=== PATIENT | female | born 1970 | race Caucasian/White ===

== ENCOUNTER 2016-07-31 12:49 | Outpatient (CLI) ==
[2016-07-31 13:47] LABS: CREATININE 0.87 mg/dL (0.60-1.30)
--- NOTE | 2016-07-31 14:53 | MRI ---
EXAM: MRI lumbar spine without and with IV contrast. DATE: 07/31/2016. HISTORY: Severe low back pain with bowel movements. TECHNIQUE: Sagittal and axial T1W, T2W, and T1W postcontrast sequences of the lumbar spine along wi th sagittal IR and coronal T2W sequences were obtained using 0.2 Aminah magnet. Contrast: Omniscan - 14 ml IV. COMPARISON: CT abdomen/pelvis 15 October 2015. FINDINGS: There are five [id number] lumbar vertebra. Alignment of the lumbar spine is normal. No acute lumbar fracture, subluxation, osseous malignancy, or pars interarticularis defect is iden tified. Lumbar vertebra are normal in height. Bone marrow signal is normal. Small anterior osteop hytes, mild Modic type 2 degenerate endplate changes and moderate disc space narrowing are present a t T12-L1. Minor disc space narrowing is detected at L3-4 and L4-5. No sacral fracture or stress leila ction is evident. Mild right SI joint arthritis is suspected inferiorly. Conus medullaris terminat es at L1. Visible spinal cord is normal. No abnormal contrast enhancement identified within the sp inal cord, nerve roots, vertebral bodies, or intervertebral discs. No retroperitoneal lymphadenopathy, paraspinal mass, or aortic aneurysm is detected. Paraspinal mus culature is symmetric bilaterally. Visible portions of the liver, spleen, adrenal glands and kidney s are normal. No bowel obstruction or neoplasm is evident. Segmental analysis: T12-L1: Small posterior disc bulge does not cause cord compression, central stenosis or foraminal s tenosis. L1-2: Normal. L2-3: Normal. L3-4: Small right foraminal to far lateral disc bulge/protrusion (3.4 mm AP x 18 mm transverse) and minimal left foraminal to far lateral disc bulge cause mild right and minimal left foraminal narrow ing. Right L3 nerve root contacts the disc bulge / protrusion in the foramen. L4-5: Minimal posterior to left foraminal disc bulge, mild facet arthropathy, and mild ligamentum f lavum hypertrophy cause mild central canal stenosis and mild bilateral foraminal stenosis. L5-S1: Normal. IMPRESSIONS: 1. L-spine minor spondylosis, facet arthropathy, and DDD. 2. No lumbar spine central canal stenosis. 3. L3-4 and L4-5 foraminal stenoses (minimal/mild). Right L3 nerve root contacts disc bulge/protru eleazar near the foramen, and could be a source for pain/radiculopathy.
== END 2016-07-31 12:50 | disposition home or self-care (01) ==
LOC: RAD 12:49
PROVIDERS: ATTEND Nurse Practitioner Family
DX: R19.8 Other specified symptoms and signs involving the digestive system and abdomen (principal); R19.7 Diarrhea, unspecified; M54.5 Low back pain; Y63.3 Inadvertent exposure of patient to radiation during medical care
CPT/HCPCS: 36415; 82565

== ENCOUNTER 2016-11-03 08:58 | Outpatient (CLI) ==
--- NOTE | 2016-11-03 16:10 | MRI ---
EXAM: MRI cervical spine without IV contrast. DATE: 03 November 2016. HISTORY: Cervicalgia. Neck pain. TECHNIQUE: Sagittal and axial T1W and T2W sequences of the cervical spine along with sagittal IR an d coronal T2W sequences were obtained using 1.5 Aminah magnet. No IV contrast. COMPARISON: MRI brain 10 January 2015. FINDINGS: Mild rightward curvature of the mid cervical spine is observed. There is a 1.5 mm anteri or subluxation of C6 relative to C5. No other subluxation, acute fracture, osseous malignancy, or j umped facet is evident. Small anterior osteophytes are noted at C2-4, C4-5, and C5-6. All mild dis c space narrowing is noted at C5-6. T1W bone marrow signal is brighter than the intervertebral disc s and paraspinal muscles. Cervical and upper thoracic spinal cord reveals no syrinx, cord edema, my elomalacia, or neoplasm. Visible brainstem and brain reveals no infarct, hemorrhage, or neoplasm. Cerebellar tonsils extend near the inferior margin of the foramen magnum. There is no Chiari one malformation. A few inferio r right mastoid air cells have T2W bright signal suggesting minor effusion. No thyroid, submandibul ar, or parotid gland neoplasm is identified. Trachea, larynx, and epiglottis are normal. Linear T2 W bright focus with bilateral T2W bright, T1W intermediate signal 7.5 x 15 mm region lateral to the left lobe thyroid gland may be prominent lymphatic duct dilatation and prominent branches. Lymphoce le is less likely. No apical lung mass, pneumonia, or pleural effusion is demonstrated. Segmental analysis: C2-3: Normal. C3-4: Small posterior disc bulge (1.8 mm AP) does not contact the cord. Canal is 11 mm AP. Minor left foraminal narrowing is due to uncinate hypertrophy and minor left facet arthropathy. C4-5: Minimal posterior disc bulge (1 mm AP) does not contact the cord. Canal is 10.6 mm AP. Each foramen is patent. C5-6: Minimal anterior subluxation of C6, broad posterior disc/osteophyte complex (1.6 mm AP) do no t cause cord compression. Canal is 9 mm AP. Minor left foraminal narrowing is due to uncinate hype rtrophy and minor left facet disease. C6-7: Normal. C7-T1: Normal. T1-2: Normal, except for left foraminal T2W bright, 4.8 x 5 mm lesion - likely benign perineural cy st. IMPRESSIONS: 1. C-spine mild spondylosis, minor facet arthropathy, and multilevel DDD. 2. C-spine mild central canal stenosis at C5-6. 3. Minor C3-4 and C5-6 left foraminal stenoses. 4. T1-2 left foraminal lesion - likely perineural cyst. 5. Left neck possible mild lymphatic duct dilatation. 6. Minor right mastoid air cell disease.
== END 2016-11-03 08:59 | disposition home or self-care (01) ==
LOC: RAD 08:58
PROVIDERS: ATTEND Nurse Practitioner Family
DX: M54.2 Cervicalgia (principal)

== ENCOUNTER 2016-12-09 11:00 | Outpatient (RCR) ==
--- NOTE | 2016-12-03 14:57 | RS.OPPTEV2 ---
Date of Note: 12/03/16 Visit #: 1 Date of Evaluation: 12/03/16 Payer Source: Medicaid Treatment Diagnosis: Low back pain History of Condition/Mechanism of Injury:: Patient reports back pain since approximately July of this year. States she does not know of any injury or exact onset. Prior Level of Function.....Patient was independent with: ADL's, Self Care, Work /Vocation, Caregiving, Ambulation/Mobility, Community Integration/Access Functional Limitations: ADL's, Reaching, Pushing, Pulling, Lifting, Carrying, Sitting, Standing, Bending, Squatting, Ambulation, Community Access/Integration Current Subjective/complaints:: Patient reports pain in the center of the low back. States pain is worse with standing and walking. States the more active she is, the more pain she has. States she has become less active and feels like she has become lazy. States she can tolerate sitting for about an hour, but then has to change positions. She reports have bowel and bladder problems. Reports having times of difficulty going to the bathroom and other times that she cannot stop. States she is able to sleep well. Admits that she does sleep on her stomach, but tries to sleep on her back. Reports she has avoided housework because of increased pain with activity. Medical History Medical History: Arthritis (neck and low back) Surgical History: Hysterectomy (2015), (1990) Smoking Status: Former smoker Hx Home Medications: Buspar, Lexapro, Neurontin Patient's Goals: Her goal is to get relief of back pain and to be active again. Pain Assessment - Pain Description Pain Location: low back Current Pain Intensity: 3/10 Worst Pain Intensity: 9/10 Functional Outcome Measure Oswestry LBP: 44 - G Codes & Severity Modifier G Codes & Modifier: NA Source of G Code score: Na Observation - Observation Posture: Forward Head, Rounded Shoulders, Decreased Lumbar Lordosis Gait - Gait Pattern General Gait Pattern Observation: No Deviations/Normal - ROM Lumbar Flexion: Hand reach to Mid-Shins Sidebending to Left: Reach to Mid-thigh Sidebending to Right: Reach to Mid-thigh Lumbar Spine ROM Limitations: Soft Tissue Tightness Comments: With lumbar flexion, patient demonstrates decreased mobility at the lumbar spine and most flexion at the hips. Extension is WFL's with some discomfort. LE AROM is WFL's. - Strength Trunk Rotation: 4 Good Comments: Bilateral hip strength is 4/5 of ER/IR and flexion, all else 4+ to 5/ 5 of the LE's. - Special Tests YE Test: Positive Left SLR Test: Negative Left, Negative Right Seated Dural Stretch Test: Negative Left, Negative Right SI Joint Compression: Positive Palpation Comments:: Patient demonstrates minimal to moderate muscle guarding along the lumbar paraspinals bilaterally. Reports slight discomfort with central pressures along the lumbar spinous processes. Reports minimal tenderness at the left lumbosacral region. Sensation - Sensation Comments: Currently sensation is intact throughout the LE's. States she does have times of numbness or tingling along the left lateral lower leg. Additional Comments: Additional Comments: Right SLR to 50-55 degrees, Left SLR to 60 degrees. Interventions - Exercise/Activities/Manual Therapy Exercises/Activities: Patient instructed in stretching exercises for home of SKTC, HS stretch and piriformis stretch Manual Therapy: NA HOME EXERCISE PROGRAM: SKTC, HS stretch and piriformis stretch - Charges Total Direct Minutes: 55 mins Total Treatment Time: 55 mins Procedures billed for this date of service:: EVAL Low X4 Assessment Assessment: Patient presents to therapy with a diagnosis of low back pain. She reports pain for approximately four months. Reports increased pain with activity. She demonstrates decreased flexiblity and mobility in the lumbar spine and an imbalance of HS flexibility in the LE's. She displays some symptoms of SI joint dysfunction. She will benefit from treatment to address flexibility and progress to spinal stability exercises and education of back safety. Patient Education: Education of diagnosis, Body/Joint mechanics, Home Exercise Program, Home Safety, Activity Modification, Education of Plan of Care Rehab Potential: Good Short Term Goals Goal #1: Patient independent in basic HEP. Goal to be met by: 12/17/16 Goal #2: SLR bilaterally to 60 degrees. Goal to be met by: 12/17/16 Goal #3: Bilateral hip strength 4+/5 throughout. Goal to be met by: 12/17/16 Topography Technician Goals Goal #1: Pt knows HEP and to continue ex's to maintain functional level at D/C. Goal to be met by: 01/12/17 Goal #2: Score on Oswestry LBP scale improved to 20. Goal to be met by: 01/12/17 Goal #3: Pt to tolerate prolonged standing/walking with minimal back pain. Goal to be met by: 01/12/17 Goal #4: Pt to perform all housework and ADL's with minimal back pain. Goal to be met by: 01/12/17 Plan - Treatment to be Provided Procedures: Therapeutic Exercises, Therapeutic Activity, Manual Therapy, Patient Education Modalities: Electrical Stimulation, Ultrasound/Phonophoresis, Cryotherapy, Hot Packs - Treatment Plan Frequency: 3 X week Duration: 4 weeks ORDER # VISITS AND/OR THROUGH DATE: 01/12/17 - Treatment Code (1) Low back pain Qualifiers: Chronicity: acute Back pain laterality: unspecified Sciatica presence: unspecified whether sciatica present Qualified Description: Acute low back pain, unspecified back pain laterality, with sciatica presence unspecified Qualifier Code(s): (M54.5) Low back pain
--- NOTE | 2016-12-09 12:04 | RS.OPPTDN ---
Subjective Date of Note: 12/09/16 Visit #: 2 Date of Evaluation: 12/03/16 Payer Source: Medicaid Treatment Diagnosis: Low back pain Current Subjective/complaints:: Reports her back," is killing her today".She has no pain in the LE's. Pain Assessment - Pain Description Pain Location: low back Pain Description: Throbbing, Aching Current Pain Intensity: 5/10 - Treatment Modality: Ultrasound Parameters/Method Applied: 10 mins. to lumbar @ 1.5 w/cm2,continuous mode. - Heat/Cryotherapy Treatment: Hot Pack (20 mins. to lumbar prior to US and exercises) Interventions - Exercise/Activities/Manual Therapy Exercises/Activities: 20 mins. stretching exercises for home of pelvic tilts, abdominal crunches in short ROM, SKTC,DKTC HS stretch. Total minutes of Exercise: 20 Manual Therapy: NA HOME EXERCISE PROGRAM: SKTC, HS stretch and piriformis stretch - Charges Total Direct Minutes: 30 Total Treatment Time: 50 Procedures billed for this date of service:: hp,US,ex 1 Assessment: Patient has good hams. extensibility ,good return demo of each exercise today.She reportsminimal stretch dsicomfort,but no reproduction of sharp pain. Patient Education: Education of diagnosis, Body/Joint mechanics, Home Exercise Program, Home Safety, Activity Modification, Education of Plan of Care Patient demonstrates compliance with HEP?: Yes Short Term Goals Goal #1: Patient independent in basic HEP. Goal to be met by: 12/17/16 Progress towards Goal:: Progressing Goal #2: SLR bilaterally to 60 degrees. Goal to be met by: 12/17/16 Goal #3: Bilateral hip strength 4+/5 throughout. Goal to be met by: 12/17/16 Detention Goals Goal #1: Pt knows HEP and to continue ex's to maintain functional level at D/C. Goal to be met by: 01/12/17 Progress towards goal: Progressing Goal #2: Score on Oswestry LBP scale improved to 20. Goal to be met by: 01/12/17 Goal #3: Pt to tolerate prolonged standing/walking with minimal back pain. Goal to be met by: 01/12/17 Goal #4: Pt to perform all housework and ADL's with minimal back pain. Goal to be met by: 01/12/17 Plan PLAN OF CARE EXPIRES ON:: 01/12/17 ORDER # VISITS AND/OR THROUGH DATE: 01/12/17 PLAN: Continue Plan of Care
== END 2016-12-10 ==
PROVIDERS: ATTEND Anesthesiology Pain Medicine
DX: M47.817 Spondylosis without myelopathy or radiculopathy, lumbosacral region (principal); M51.37 Other intervertebral disc degeneration, lumbosacral region; M54.5 Low back pain

== ENCOUNTER 2016-12-23 11:00 | Outpatient (RCR) ==
--- NOTE | 2016-12-11 12:09 | RS.OPPTDN ---
Subjective Date of Note: 12/11/16 Visit #: 3 Date of Evaluation: 12/03/16 Payer Source: Medicaid Treatment Diagnosis: Low back pain Current Subjective/complaints:: Patient reports relief after last PT session. Pain Assessment - Pain Description Pain Location: low back Pain Description: Dull, Aching Current Pain Intensity: 3/10 - Treatment Modality: Ultrasound Parameters/Method Applied: 10 mins. @ 1.5 w/cm2 ,continuous mode to lumbar region. Patient Position: Right Sidelying - Heat/Cryotherapy Treatment: Hot Pack (20 mins. prior to US and exercise) Interventions - Exercise/Activities/Manual Therapy Exercises/Activities: 20 mins. stretching exercises for home of pelvic tilts, abdominal crunches in short ROM, SKTC,DKTC HS stretches,LTR,piriformis stretches. Total minutes of Exercise: 20 Manual Therapy: NA HOME EXERCISE PROGRAM: SKTC, HS stretch and piriformis stretch - Charges Total Direct Minutes: 30 Total Treatment Time: 50 Procedures billed for this date of service:: hp,US,ex Assessment: Patient tolerates exercises very well today,reports less back pain. She is very attentive to recommendations of the therapy staff. Patient Education: Education of diagnosis, Body/Joint mechanics, Home Exercise Program, Home Safety, Activity Modification, Education of Plan of Care Patient demonstrates compliance with HEP?: Yes Short Term Goals Goal #1: Patient independent in basic HEP. Goal to be met by: 12/17/16 Progress towards Goal:: Progressing Goal #2: SLR bilaterally to 60 degrees. Goal to be met by: 12/17/16 Progress towards Goal:: Progressing Goal #3: Bilateral hip strength 4+/5 throughout. Goal to be met by: 12/17/16 Mcfp Goals Goal #1: Pt knows HEP and to continue ex's to maintain functional level at D/C. Goal to be met by: 01/12/17 Progress towards goal: Progressing Goal #2: Score on Oswestry LBP scale improved to 20. Goal to be met by: 01/12/17 Goal #3: Pt to tolerate prolonged standing/walking with minimal back pain. Goal to be met by: 01/12/17 Goal #4: Pt to perform all housework and ADL's with minimal back pain. Goal to be met by: 01/12/17 Plan PLAN OF CARE EXPIRES ON:: 01/12/17 ORDER # VISITS AND/OR THROUGH DATE: 01/12/17 PLAN: Continue Plan of Care
--- NOTE | 2016-12-16 11:58 | RS.OPPTDN ---
Subjective Date of Note: 12/16/16 Visit #: 4 Date of Evaluation: 12/03/16 Payer Source: Medicaid Treatment Diagnosis: Low back pain Current Subjective/complaints:: Patient reports the back feels better today. Pain Assessment - Pain Description Pain Location: low back Pain Description: Dull, Aching Current Pain Intensity: 0 at rest Other Comments regarding Pain:: Pain generally as the day progresses,dependent upon the amount of daily activity. - Heat/Cryotherapy Treatment: Hot Pack (20 mins. prior to exercises) Interventions - Exercise/Activities/Manual Therapy Exercises/Activities: 25 mins. stretching exercises for home of pelvic tilts, aSKTC,DKTC ,HS stretches,LTR,piriformis stretches.Added alternating hip flexion in hooklying with 2.5 # ,09/01.4-pt. quads,2/10 reps. Total minutes of Exercise: 25 Manual Therapy: NA Total minutes of Manual Therapy: 0 HOME EXERCISE PROGRAM: SKTC, HS stretch and piriformis stretch - Charges Total Direct Minutes: 25 Total Treatment Time: 45 Procedures billed for this date of service:: hp,ex 2 Assessment: Tolerates resistive exercises with report of fatigue only,no increase in back pain.She has good return demo of HEP. Patient Education: Education of diagnosis, Body/Joint mechanics, Home Exercise Program, Home Safety, Activity Modification, Education of Plan of Care Patient demonstrates compliance with HEP?: Yes Short Term Goals Goal #1: Patient independent in basic HEP. Goal to be met by: 12/17/16 Progress towards Goal:: Progressing Goal #2: SLR bilaterally to 60 degrees. Goal to be met by: 12/17/16 Progress towards Goal:: Progressing Goal #3: Bilateral hip strength 4+/5 throughout. Goal to be met by: 12/17/16 Progress towards Goal:: Progressing Penitentiary Goals Goal #1: Pt knows HEP and to continue ex's to maintain functional level at D/C. Goal to be met by: 01/12/17 Progress towards goal: Progressing Goal #2: Score on Oswestry LBP scale improved to 20. Goal to be met by: 01/12/17 Goal #3: Pt to tolerate prolonged standing/walking with minimal back pain. Goal to be met by: 01/12/17 Progress towards goal: Progressing Goal #4: Pt to perform all housework and ADL's with minimal back pain. Goal to be met by: 01/12/17 Progress towards goal: Progressing Plan PLAN OF CARE EXPIRES ON:: 01/12/17 ORDER # VISITS AND/OR THROUGH DATE: 01/12/17 PLAN: Continue Plan of Care
--- NOTE | 2016-12-18 11:41 | RS.OPPTDN ---
Subjective Date of Note: 12/18/16 Visit #: 5 Date of Evaluation: 12/03/16 Payer Source: Medicaid Treatment Diagnosis: Low back pain Current Subjective/complaints:: Patient reports not feeling well,having frequent bowel movements today,and increased back pain ,described as moderate. Pain Assessment - Pain Description Pain Location: low back Pain Description: Dull, Aching Current Pain Intensity: 3-4 - Heat/Cryotherapy Treatment: Hot Pack (20 mins. to lumbar in supine.) Interventions - Exercise/Activities/Manual Therapy Exercises/Activities: NA Total minutes of Exercise: 0 Manual Therapy: NA Total minutes of Manual Therapy: 0 HOME EXERCISE PROGRAM: SKTC, HS stretch and piriformis stretch - Charges Total Direct Minutes: 0 Total Treatment Time: 20 Procedures billed for this date of service:: no charges today Assessment: Abbreviated session only ,unable to do exercises as patient is having frequent bowel movements today. Patient Education: Education of Plan of Care Patient demonstrates compliance with HEP?: Yes Short Term Goals Goal #1: Patient independent in basic HEP. Goal to be met by: 12/17/16 Progress towards Goal:: Progressing Goal #2: SLR bilaterally to 60 degrees. Goal to be met by: 12/17/16 Progress towards Goal:: Progressing Goal #3: Bilateral hip strength 4+/5 throughout. Goal to be met by: 12/17/16 Progress towards Goal:: Progressing Automotive Diagnostic Technician Goals Goal #1: Pt knows HEP and to continue ex's to maintain functional level at D/C. Goal to be met by: 01/12/17 Progress towards goal: Progressing Goal #2: Score on Oswestry LBP scale improved to 20. Goal to be met by: 01/12/17 Goal #3: Pt to tolerate prolonged standing/walking with minimal back pain. Goal to be met by: 01/12/17 Progress towards goal: Progressing Goal #4: Pt to perform all housework and ADL's with minimal back pain. Goal to be met by: 01/12/17 Progress towards goal: Progressing Plan PLAN OF CARE EXPIRES ON:: 01/12/17 ORDER # VISITS AND/OR THROUGH DATE: 01/12/17 PLAN: Continue Plan of Care
--- NOTE | 2016-12-25 11:50 | RS.OPPTDN ---
Subjective Date of Note: 12/16/16 Date of Evaluation: 12/03/16 Payer Source: Medicaid Treatment Diagnosis: Low back pain Current Subjective/complaints:: Patient reports feeling better today ,no back pain at this time,is doing her exercises moreregularly,also riding exercise bike. Pain Assessment - Pain Description Pain Location: low back Pain Description: Dull, Aching Current Pain Intensity: 0 at rest - Heat/Cryotherapy Treatment: Hot Pack (20 mins. prior to exercises) Interventions - Exercise/Activities/Manual Therapy Exercises/Activities: 25 mins. Total minutes of Exercise: 25 Manual Therapy: NA Total minutes of Manual Therapy: 0 HOME EXERCISE PROGRAM: SKTC, HS stretch and piriformis stretch - Charges Total Direct Minutes: 25 Total Treatment Time: 45 Procedures billed for this date of service:: hp,ex 2 Short Term Goals Goal #1: Patient independent in basic HEP. Goal to be met by: 12/17/16 Progress towards Goal:: Progressing Goal #2: SLR bilaterally to 60 degrees. Goal to be met by: 12/17/16 Progress towards Goal:: Progressing Goal #3: Bilateral hip strength 4+/5 throughout. Goal to be met by: 12/17/16 Progress towards Goal:: Progressing Sales Contracts Analyst Goals Goal #1: Pt knows HEP and to continue ex's to maintain functional level at D/C. Goal to be met by: 01/12/17 Progress towards goal: Progressing Goal #2: Score on Oswestry LBP scale improved to 20. Goal to be met by: 01/12/17 Goal #3: Pt to tolerate prolonged standing/walking with minimal back pain. Goal to be met by: 01/12/17 Progress towards goal: Progressing Goal #4: Pt to perform all housework and ADL's with minimal back pain. Goal to be met by: 01/12/17 Progress towards goal: Progressing Plan PLAN OF CARE EXPIRES ON:: 01/12/17 ORDER # VISITS AND/OR THROUGH DATE: 01/12/17 PLAN: Progress Exercises
--- NOTE | 2016-12-25 11:52 | RS.CXNS ---
Date of scheduled appointment: 12/25/16 Type: Cancel Reason for Cancel/NS: sick today
--- NOTE | 2017-01-01 11:51 | RS.QUICKDC ---
Discharge from PT Date of Discharge: 01/01/17 Number of Visits: 6 Reason for Discharge: Patient called ,pleased with her progress,feels she can continue exercises on her own.Requests D/C from therapy.
== END 2017-01-09 ==
PROVIDERS: ATTEND Anesthesiology Pain Medicine
DX: M47.817 Spondylosis without myelopathy or radiculopathy, lumbosacral region (principal); M51.37 Other intervertebral disc degeneration, lumbosacral region; M54.5 Low back pain

== ENCOUNTER 2017-02-24 18:44 | Outpatient (CLI) ==
[2017-02-24 18:47] LABS: FLU INTERNAL QC INTERNAL QC VALID; RAPID FLU A NEGATIVE (NEGATIVE); RAPID FLU B NEGATIVE (NEGATIVE)
== END 2017-02-24 18:45 | disposition home or self-care (01) ==
LOC: LAB 18:44
PROVIDERS: ATTEND Nurse Practitioner Family
DX: R05 Cough (principal); J02.9 Acute pharyngitis, unspecified; R52 Pain, unspecified; R68.83 Chills (without fever)
CPT/HCPCS: 87651; 87804; 87880

== ENCOUNTER 2017-07-02 12:33 | Outpatient (CLI) ==
[2017-07-02 13:06] LABS: ALANINE AMINOTRANSFERASE 20 U/L (12-78); ALBUMIN 3.4 g/dL (3.4-5.0); ALBUMIN/GLOBULIN RATIO 1.06; ALKALINE PHOSPHATASE 78 U/L (42-98); ANION GAP 13.1; ASPARTATE AMINO TRANSFERASE 18 U/L (15-37); BILIRUBIN,TOTAL < 0.3 mg/dL (0.00-1.20); BLOOD UREA NITROGEN 9 mg/dL (7-18); BUN/CREATININE RATIO 10.97; CALCIUM 9.2 mg/dL (8.2-10.2); CARBON DIOXIDE 23 mmol/L (21-32); CHLORIDE 109 mmol/L (98-107); CHOL/HDL RATIO 6.3 (4.5-5.5); CHOLESTEROL 209 mg/dL (0-200); CREATININE 0.82 mg/dL (0.60-1.30); GLUCOSE 86 mg/dL (70-110); HDL CHOLESTEROL 33 mg/dL (35-80); POTASSIUM 4.1 mmol/L (3.5-5.10); SODIUM 141 mmol/L (136-145); TOTAL PROTEIN 6.6 g/dL (6.4-8.2); TRIGLYCERIDES 220 mg/dL (30-150); VLDL CHOLESTEROL 44 mg/dL (2-30)
== END 2017-07-02 12:34 | disposition home or self-care (01) ==
LOC: LAB 12:33
PROVIDERS: ATTEND Nurse Practitioner Family
DX: E78.1 Pure hyperglyceridemia (principal)
CPT/HCPCS: 36415; 80053; 80061

== ENCOUNTER 2017-09-18 09:30 | Outpatient (CLI) | END 2017-09-18 09:31 | disposition home or self-care (01) | LOC: RAD 09:30 → RHC-LAB 09:31 | PROVIDERS: ATTEND Nurse Practitioner Family | DX: E78.5 Hyperlipidemia, unspecified (principal) | CPT/HCPCS: 36415; 80053; 80061 ==

== ENCOUNTER 2017-09-27 10:46 | Emergency (ER) ==
[2017-09-27 10:52] VITALS: BP 134/90; TEMP 99; BMI 31.1
[2017-09-27] MEDS ORDERED: SOLU-MEDROL 125 MG IM STA (11:01)
--- NOTE | 2017-09-27 11:05 | ED.PDOC ---
General ED Provider: Dr. CARY MENDOZA Chief Complaint: Cough Stated Complaint: Patient is a 46 year old female who states that starting 4 days ago with cough and congestion that has worsened since then. Patient also complains of body aches and a non- productive cough and sinus headache. Time Seen by Physician: 11:03 Mode of Arrival: Walk-In Information Source: Patient Primary Care Provider: [facility] Nursing and Triage Documentation Reviewed and Agree: Yes Reviewed sepsis parameters & appropriate labs ordered?: No System Inflammatory Response Syndrome: Not Applicable Sepsis Protocol: For patient's 13 years and over: Temp is 96.8 and below OR 101 and greater Pulse >90 BPM Resp >20/minute Acutely Altered Mental Status Are patient's symptoms suggestive of a new infection, such as: -Pneumonia -Skin, Soft Tissue -Endocarditis -UTI -Bone, Joint Infection -Implantable Device -Acute Abdominal Infection -Wound Infection -Meningitis -Blood Stream Catheter Infection -Unknown System Inflammatory Response Syndrome: Not Applicable Review of Systems - Review Of Systems Constitutional: Reports: Malaise, Other (body aches ) Eyes: Reports: No symptoms Ears, Nose, Mouth, Throat: Reports: No symptoms Respiratory: Reports: Cough Cardiac: Reports: No symptoms GI: Reports: Nausea, Poor appetite : Reports: No symptoms Musculoskeletal: Reports: No symptoms Skin: Reports: No symptoms Neurological: Reports: Anxiety, Headache Endocrine: Reports: No symptoms Hematologic/Lymphatic: Reports: No symptoms All Other Systems: Reviewed and Negative Past Medical History - Past Medical History Previously Healthy: Yes Endocrine: Reports: Dyslipidemia Cardiovascular: Reports: Hypertension Respiratory: Reports: None Hematological: Reports: None Gastrointestinal: Reports: None Genitourinary: Reports: None Neuro/Psych: Reports: Migraine, Anxiety, Depression, Bipolar Disorder Musculoskeletal: Reports: Arthritis Cancer: Reports: None Last Menstrual Period: HYSTERECTOMY - Surgical History General Surgical History: Reports: Hysterectomy, - Family History Family History: Reports: Unknown - Social History Smoking Status: Never smoker Hx Substance Use: Yes (MARIJUANA) Alcohol Screening: Occasionally - Immunizations Tetanus Shot up to Date: Yes Physical Exam - Physical Exam Appearance: Ill-appearing, Obese Ill-appearing: Mild Pain Distress: Mild Eyes: JESSY, EOMI, Conjunctiva clear ENT: Ears normal, Nose normal, Oropharynx normal (frontal sinus tenderness) Neck: Supple Respiratory: Airway patent, Breath sounds clear, Breath sounds equal, Respirations nonlabored Cardiovascular: RRR, Pulses normal, No rub, No murmur GI/: Soft, Nontender, No masses, Bowel sounds normal, No Organomegaly Musculoskeletal: Normal strength, ROM intact, No edema, No calf tenderness Skin: Warm, Dry, Normal color Neurological: Sensation intact, Motor intact, Reflexes intact, Cranial nerves intact, Alert, Oriented Psychiatric: Affect appropriate Critical Care Note - Critical Care Note Total Time (mins): 0 Course - Course Orders, Labs, Meds: Orders Category Date Time Status Methylprednisolone Sod Succ/Pf [Solu-Medrol 125 mg] MEDS 09/27/17 11:01 Stat 125 mg IM ONCE STA Medications Discontinued Medications Generic Name Dose Route Start Last Admin Trade Name Freq PRN Reason Stop Dose Admin Methylprednisolone Sodium Succinate 125 mg 09/27/17 11:01 Solu-Medrol 125 Mg IM 09/27/17 11:02 ONCE STA Vital Signs: Temp Pulse Resp BP Pulse Ox 09/27/17 10:48 99.0 F 84 20 134/90 98 Departure - Departure Time of Disposition: 11:03 Disposition: HOME SELF-CARE Discharge Problem: Bronchitis Acute sinusitis Qualifiers: Sinusitis location: frontal Recurrence: non-recurrent Qualified Code(s): J01.10 - Acute frontal sinusitis, unspecified Instructions: Sinusitis (ED), Acute Bronchitis (ED) Condition: Stable Pt referred to PMD for follow-up: Yes IPMP verified?: No Additional Instructions: Push fluids Take medications as prescribed. Follow up with PCP 3 days Prescriptions: Azithromycin [Zithromax] 250 mg PO DIRECTED #6 tablet Methylprednisolone [Medrol Dosepak] 4 mg PO DIRECTED #1 pkg Ondansetron HCl [Zofran Tab] 4 mg PO Q8H PRN #14 tablet PRN Reason: Nausea / Vomiting Allergies/Adverse Reactions: Allergies No Known Allergies Allergy (Unverified 02/24/17 13:42) Home Medications: Ambulatory Orders Estradiol [Estrace] 1 mg PO DAILY 07/30/16 Azithromycin [Zithromax] 250 mg PO DIRECTED #6 tablet 09/27/17 Methylprednisolone [Medrol Dosepak] 4 mg PO DIRECTED #1 pkg 09/27/17 Ondansetron HCl [Zofran Tab] 4 mg PO Q8H PRN #14 tablet 09/27/17 Disposition Discussed With: Patient, Family
== END 2017-09-27 11:30 | disposition home or self-care (01) ==
LOC: ED 10:46
DX: J20.9 Acute bronchitis, unspecified (principal); J01.10 Acute frontal sinusitis, unspecified
CPT/HCPCS: 96372; 99282

== ENCOUNTER 2017-10-02 11:42 | Outpatient (CLI) | END 2017-10-02 11:43 | disposition home or self-care (01) | LOC: RHC-LAB 11:42 | PROVIDERS: ATTEND Nurse Practitioner Family | DX: R23.2 Flushing (principal); R45.4 Irritability and anger; R45.83 Excessive crying of child, adolescent or adult | CPT/HCPCS: 36415; 82672; 83001; 83002 ==

== ENCOUNTER 2018-02-18 10:09 | Outpatient (CLI) | END 2018-02-18 10:10 | LOC: RHC-LAB 10:09 | PROVIDERS: ATTEND Nurse Practitioner Family | DX: E78.5 Hyperlipidemia, unspecified (principal); I10 Essential (primary) hypertension | CPT/HCPCS: 36415; 80053; 80061; 82306; 85025 ==

== ENCOUNTER 2018-09-16 06:10 | Outpatient (CLI) | END 2018-09-16 06:11 | disposition home or self-care (01) | LOC: LAB 06:10 | PROVIDERS: ATTEND Nurse Practitioner Family | DX: I10 Essential (primary) hypertension (principal); E78.5 Hyperlipidemia, unspecified; E78.1 Pure hyperglyceridemia | CPT/HCPCS: 36415; 80053; 80061; 84443 ==

== ENCOUNTER 2018-11-19 07:04 | Emergency (ER) ==
[2018-11-19 07:10] VITALS: BP 138/87; TEMP 98.6; BMI 23.6
[2018-11-19] MEDS ORDERED: LIDOCAINE 1%-EPI 1:100,000 20 ML MDV INJ STA (07:33)
--- NOTE | 2018-11-19 07:33 | ED.PDOC ---
General ED Provider: Dr. NICHOLAS CHRISTINE MD Chief Complaint: Abscess Stated Complaint: right thigh pain, infected? Time Seen by Physician: 07:30 Mode of Arrival: Walk-In Information Source: Patient Exam Limitations: No limitations Primary Care Provider: [facility] Nursing and Triage Documentation Reviewed and Agree: Yes Does patient meet sepsis criteria?: No If yes, has appropriate treatment been initiated?: Yes System Inflammatory Response Syndrome: Not Applicable Sepsis Protocol: For patient's 13 years and over: Temp is 96.8 and below OR 101 and greater Pulse >90 BPM Resp >20/minute Acutely Altered Mental Status Are patient's symptoms suggestive of a new infection, such as: -Pneumonia -Skin, Soft Tissue -Endocarditis -UTI -Bone, Joint Infection -Implantable Device -Acute Abdominal Infection -Wound Infection -Meningitis -Blood Stream Catheter Infection -Unknown Review of Systems - Review Of Systems Constitutional: Reports: No symptoms Eyes: Reports: No symptoms Ears, Nose, Mouth, Throat: Reports: No symptoms Respiratory: Reports: No symptoms Cardiac: Reports: No symptoms GI: Reports: No symptoms : Reports: No symptoms Musculoskeletal: Reports: Muscle pain, Other (area 6x4 cm redness/induration right upper thigh) Skin: Reports: No symptoms Neurological: Reports: No symptoms Endocrine: Reports: No symptoms Hematologic/Lymphatic: Reports: No symptoms All Other Systems: Reviewed and Negative Past Medical History - Past Medical History Previously Healthy: Yes Endocrine: Reports: Dyslipidemia Cardiovascular: Reports: Hypertension Respiratory: Reports: None Hematological: Reports: None Gastrointestinal: Reports: None Genitourinary: Reports: None Neuro/Psych: Reports: Migraine, Anxiety, Depression, Bipolar Disorder Musculoskeletal: Reports: Arthritis Cancer: Reports: None Last Menstrual Period: hysterectomy - Surgical History General Surgical History: Reports: Hysterectomy, - Family History Family History: Reports: Unknown - Social History Smoking Status: Never smoker Hx Substance Use: Yes (MARIJUANA) Alcohol Screening: Occasionally Physical Exam - Physical Exam Appearance: Well-appearing, No pain distress, Well-nourished Eyes: JESSY, EOMI, Conjunctiva clear ENT: Ears normal, Nose normal, Oropharynx normal Respiratory: Airway patent, Breath sounds clear, Breath sounds equal, Respirations nonlabored Cardiovascular: RRR, Pulses normal, No rub, No murmur GI/: Soft, Nontender, No masses, Bowel sounds normal, No Organomegaly Musculoskeletal: Normal strength, ROM intact, No edema, No calf tenderness Skin: Warm (erythema 4x6 cm upper right thigjh), Dry, Normal color Neurological: Sensation intact, Motor intact, Reflexes intact, Cranial nerves intact, Alert, Oriented Psychiatric: Affect appropriate, Mood appropriate Procedures - Incision and Drainage Site: right upper thigh Instrument Used: 11 Blade I & D Procedure: Yes: Sterile drapes applied Lidocaine Used: Yes (1% epi 4ml) Type of Drainage: Present: Blood Irrigated: No (dressing applied) Critical Care Note - Critical Care Note Total Time (mins): 0 Course - Course Vital Signs: Temp Pulse Resp BP Pulse Ox 11/19/18 07:05 98.6 F 65 20 138/87 96 Departure - Departure Time of Disposition: 08:00 Disposition: HOME SELF-CARE Discharge Problem: Insect bite Qualifiers: Encounter type: initial encounter Site of insect bite: thigh Instructions: Insect Bite or Sting (ED) Condition: Good Pt referred to PMD for follow-up: Yes IPMP verified?: No Prescriptions: Cephalexin [Keflex] 500 mg PO Q8HR 7 Days #21 capsule NS Prednisone 20 mg PO DAILYWM 5 Days #5 tablet NS Allergies/Adverse Reactions: Allergies No Known Allergies Allergy (Verified 11/19/18 07:13) Home Medications: Ambulatory Orders Estradiol [Estrace] 2 mg PO DAILY 07/30/16 Cephalexin [Keflex] 500 mg PO Q8HR 7 Days #21 capsule NS 11/19/18 Prednisone 20 mg PO DAILYWM 5 Days #5 tablet NS 11/19/18
== END 2018-11-19 08:05 | disposition home or self-care (01) ==
LOC: ED 07:04
DX: S70.361A Insect bite (nonvenomous), right thigh, initial encounter (principal); W57.XXXA Bitten or stung by nonvenomous insect and other nonvenomous arthropods, initial encounter
CPT/HCPCS: 99282